=== PATIENT | female | born 1955 | race Caucasian/White ===

== ENCOUNTER → 2017-12-08 07:50 | Outpatient (CLI) | payer OTHER, SELFPAY ==
--- NOTE | 2017-12-08 07:56 | RAD_ITS ---
STUDY: X-RAY - PELVIS AND LEFT HIP REASON FOR EXAM: Female, 62 years old. Left sciatica. TECHNIQUE: Radiological exam, hip, unilateral, with pelvis when performed; 2 or 3 views. COMPARISON: None. FINDINGS: There is a non-specific bowel gas pattern. Multiple calcifications within the pelvis with lucent centers are most compatible with calcified phleboliths. Osseous alignment appear anatomic. There is no acute fracture lucency. There is no cortical step-off. Enthesopathy involves the iliac bones and ischia bilaterally. There is mild hip osteoarthritis. There is mild nonerosive sacroiliac osteoarthritis. Diffuse spinal degenerative changes are identified. RAD/Hip 2-3 Views with Pelvis IMPRESSION: No evident acute osseous abnormality. Enthesopathy as above. Multifocal osteoarthritis. Calcified pelvic phleboliths. Diffuse spinal degenerative changes. Electronically Signed: Efrain Alcocer MD at 8:53 EDT , Service support ,
--- NOTE | 2017-12-08 08:00 | RAD_ITS ---
STUDY: X-RAY - LUMBAR SPINE REASON FOR EXAM: Female, 62 years old. Left sciatica. TECHNIQUE: 5 view(s) of the lumbar spine were obtained. COMPARISON: None FINDINGS: There is minimal, grade 1 degenerative listhesis at L3-L4. There is no acute fracture lucency. There is no cortical step-off. There is no acute compression fracture/deformity. Mild spondylosis involves L3, L4 and L5. There is moderate L4-L5 degenerative disc disease with vacuum phenomena. There is also mild to moderate L5-S1 degenerative disc disease. Bilateral facet arthrosis involves L3, L4, L5 and S1. There is no substantial scoliosis. No lysis is identified on bilateral oblique projections. The soft tissue structures are unremarkable. RAD/L/S Spine Min 4 Views IMPRESSION: No radiographically evident acute osseous abnormality. Single level of minimal grade 1 degenerative listhesis. Spondylosis, facet arthrosis and degenerative disc disease as characterized above. Recommendation: In this patient with a provided clinical history of sciatica, consider evaluation with MRI. Electronically Signed: Efrain Alcocer MD at 8:54 EDT , Service support ,
== END ==
PROVIDERS: Family Provider Family Medicine; PCP Family Medicine; Visit Provider Family Medicine
DX: M54.32 Sciatica, left side (principal)
CPT/HCPCS: 72110; 73502

== ENCOUNTER → 2022-09-30 | Outpatient (CLI) | payer OTHER, SELFPAY ==
[2022-09-30 15:54] LABS: Absolute Lymphocyte Count 2.96 X10^3/uL (0.83-4.51); Absolute Neutrophil Count 6.5 X10^3/uL (2.0-7.7); Basophil% 0.9 % (0-1); Eosinophils% 1.9 % (0-5); Hematocrit 39.9 % (37-47); Hemoglobin 12.9 g/dL (12.0-15.0); Lymphocyte # 2.96 X10^3/ul (0.83-4.51); Lymphocyte % 27.6 % (19-41); Mean Corp Hgb Conc 32.3 g/dL (32-36); Mean Corpuscular Hgb 29.6 pg (27.0-32.0); Mean Corpuscular Volume 91.5 fL (81-99); Mean Platelet Vol. 10.2 fl (6.2-12.0); Monocyte# 0.86 X10^3/uL; NRBC Flagged by Analyzer 0 % (0-5); Neutrophil # 6.53 X10^3/uL (2.7-7.7); Platelet Count 351 K/mm3 (150-450); RBC Distribution Width SD 43.2 fl (35.1-43.9); Red Blood Count 4.36 M/mm3 (4.2-5.4); White Blood Count 10.7 K/mm3 (4.4-11.0)
[2022-09-30 16:13] LABS: Erythrocyte Sedimentation Rate 2 mm/hr (0-30)
[2022-09-30 16:49] LABS: ALB/GLOB Ratio 1.2 RATIO (0.9-2.4); AST(SGOT) 27 U/L (15-37); Alanine Aminotransfer ALT/SGPT 42 U/L (13-56); Albumin, Serum 3.7 g/dL (3.2-5.0); Alkaline Phosphatase 87 U/L (45-117); Anion Gap 8 (5-15); BUN 14 mg/dL (7-18); BUN/Creat Ratio 18.2 RATIO (10-20); CRP < 2.90 mg/L (0.0-3.0); Chloride 96 mmol/L (98-107); Creatinine, Serum 0.77 mg/dL (0.55-1.02); EST Glomerular Filtration Rate 79 mL/min (>60); Est Glom Filt Rate - Afr Amer 96 mL/min (>60); Globulin 3.1 g/dL (2.2-4.2); Glucose 95 mg/dL (74-106); LDH 141 U/L (84-246); Potassium 3.8 mmol/L (3.5-5.1); Protein, Total 6.8 g/dL (6.4-8.2); Sodium Level 131 mmol/L (136-145)
[2022-10-03 15:07] LABS: Anti-Centromere B Ab <0.2 AI (0.0-0.9); Anti-Chromatin <0.2 AI (0.0-0.9); Anti-Jo <0.2 AI (0.0-0.9); Anti-Scleroderma-70 AB <0.2 AI (0.0-0.9); Endomysial Antibody IgA Negative (Negative); RNP Ab <0.2 AI (0.0-0.9); SJOGREN'S Anti-SS-A test < 0.2 AI (0.0-0.9); SJOGREN'S Anti-SS-B test < 0.2 AI (0.0-0.9); Smith Ab <0.2 AI (0.0-0.9)
[2022-10-03 19:22] LABS: Anti-dsDNA Ab 2 IU/mL (0-9); Immunoglobulin A 87 mg/dL (87-352); t-Transglutaminase IgA <2 U/mL (0-3)
[2022-10-08 15:07] LABS: Albumin 3.9 g/dL (2.9-4.4); Alpha-1-Globulins 0.3 g/dL (0.0-0.4); Alpha-2-Globulins 0.7 g/dL (0.4-1.0); Cytoplasmic Ab (C-ANCA) <1:20 titer (Neg:<1:20); Gamma Globulin 0.6 g/dL (0.4-1.8); Immunoglobulin A 85 mg/dL (87-352); Immunoglobulin E 5 IU/mL (6-495); Immunoglobulin G 514 mg/dL (586-1602); Immunoglobulin M 72 mg/dL (26-217); PROEL- TOTAL PROTEIN 6.5 g/dL (6.0-8.5)
[2022-10-09 09:18] LABS: Perinuclear Ab (P-ANCA) <1:20 titer (Neg:<1:20)
== END | disposition home or self-care (01) ==
PROVIDERS: PCP Family Medicine; Referring Provider Internal Medicine Gastroenterology; Visit Provider Internal Medicine Gastroenterology
DX: K52.9 Noninfective gastroenteritis and colitis, unspecified (principal)
CPT/HCPCS: 36415; 80053; 82784; 82785; 83516; 83615; 84165; 85025; 85652; 86140; 86225; 86235; 86255; 86256; 86334

== ENCOUNTER → 2022-10-03 | Outpatient (CLI) | payer OTHER, SELFPAY ==
[2022-10-06 23:01] LABS: Calprotectin, Stool <16 ug/g (0-120)
[2022-10-06 23:06] LABS: Pancreatic Elastase, Fecal 310 (>200)
== END | disposition home or self-care (01) ==
LOC: LABSPEC 10:52
PROVIDERS: PCP Family Medicine; Referring Provider Internal Medicine Gastroenterology; Visit Provider Internal Medicine Gastroenterology
DX: K58.9 Irritable bowel syndrome, unspecified (principal)
CPT/HCPCS: 82653; 83630; 83993; 87177; 87209; 87329; 87493; 87506